=== PATIENT | male | born 1960 | race Caucasian/White ===

== ENCOUNTER → 2019-05-23 | Outpatient (CLI) | payer OTHER ==
--- NOTE | 2019-05-24 13:05 | PCVCIMAG ---
APPROVED REPORT Study performed: 05/23/2019 13:12:56 EXAM: Comprehensive 2D, Doppler, and color-flow Echocardiogram Patient Location: Echo lab Status: routine BSA: 2.06 HR: 66 bpmBP: 122/80 mmHg Rhythm: NSR Other Information Study Quality: Adequate Risk Factors: Cardiac Risk Factors: FHX of CAD, Obesity Indications Dyspnea 2D Dimensions IVSd: 8.43 (7-11mm)LVOT Diam: 23.39 (18-24mm) LVDd: 54.07 mm PWd: 9.85 (7-11mm)Ascending Ao: 35.88 (22-36mm) LVDs: 39.66 (25-40mm) Left Atrium: 33.27 (27-40mm) Aortic Root: 34.62 mm LV Single Plane 4CH: 51.45 % LV Single Plane 2CH: 65.02 % Biplane EF: 58.3 % Volumes Left Atrial Volume (Systole) Single Plane 4CH: 49.84 mLSingle Plane 2CH: 44.50 mL LA ESV Index: 25.00 mL/m2 Aortic Valve AoV Peak Dagoberto.: 1.42 m/s AO Peak Gr.: 8.09 mmHgLVOT Max P.78 mmHg LVOT Max V: 0.97 m/s TWILA Vmax: 2.94 cm2 Mitral Valve E/A Ratio: 1.1 MV Decel. Time: 171.16 ms MV E Max Dagoberto.: 0.88 m/s MV A Dagoberto.: 0.81 m/s TDI E/Lateral E': 12.57E/Medial E': 11.00 Medial E' Dagoberto.: 0.08 m/s Lateral E' Dagoberto.: 0.07 m/s Pulmonary Valve PV Peak Gr.: 2.53 mmHg Pulmonary Vein P Vein S: 0.56 m/sP Vein A: 0.31 m/s P Vein D: 0.33 m/sP Vein A Dur.: 100.3 msec P Vein S/D Ratio: 1.70 Tricuspid Valve TR Peak Dagoberto.: 2.27 m/s TR Peak Gr.: 20.60 mmHg Left Ventricle The left ventricle is normal size. There is normal LV segmental wall motion. There is normal left ventricular wall thickness. Left ventricular systolic function is normal. The left ventricular ejection fraction is within the normal range. LVEF is 60-65%. The left ventricular diastolic function is normal. Right Ventricle The right ventricle is normal size. The right ventricular systolic function is normal. Atria The left atrium size is normal. The right atrium size is normal. Aortic Valve The aortic valve is normal in structure. No aortic regurgitation is present. There is no aortic valvular stenosis. Mitral Valve The mitral valve is normal in structure. Trace mitral regurgitation. No evidence of mitral valve stenosis. Tricuspid Valve The tricuspid valve is normal in structure. Trace tricuspid regurgitation. Pulmonary artery pressure is 27mmhg. Pulmonic Valve The pulmonary valve is normal in structure. There is no pulmonic valvular regurgitation. Great Vessels The aortic root is normal in size. IVC is normal in size and collapses >50% with inspiration. Pericardium There is no pericardial effusion. <Conclusion> The left ventricle is normal size. LVEF is 60-65%. The aortic valve is normal in structure. The mitral valve is normal in structure. Trace mitral regurgitation. The tricuspid valve is normal in structure. Trace tricuspid regurgitation. Pulmonary artery pressure is 27mmhg. The pulmonary valve is normal in structure. The aortic root is normal in size. There is no pericardial effusion.
== END | disposition home or self-care (01) ==
LOC: PCVCIMAG 13:09
PROVIDERS: ATTEND Internal Medicine
DX: R07.9 Chest pain, unspecified (principal); R06.09 Other forms of dyspnea; E66.01 Morbid (severe) obesity due to excess calories
CPT/HCPCS: 93306